=== PATIENT | male | born 1970 | race Two or more races ===

== ENCOUNTER 2017-06-03 01:52 | Emergency (ER) | payer BC ==
[~2017-06-03] VITALS: Ht 177.8 cm; Wt 66.2 kg
[2017-06-03] MEDS ORDERED: HUMIRA20 MG/0.4 SUBQ (02:08)
[2017-06-03 02:12] VITALS: BP 112/79
[2017-06-03] MEDS ORDERED: DIPHENHYDRAMINE25 M1 ORAL (02:29)
[2017-06-03] MEDS ORDERED: PREDNISONE20 MG ORAL (02:29)
[2017-06-03 02:44] VITALS: BP 126/74
--- NOTE | 2017-06-03 07:07 | Emergency Room Report ---
History of Present Illness General Chief Complaint: Allergic Reaction Source: Patient Present Illness HPI 46-year-old M presents ED complaining of allergic reaction. States that yesterday he had MRI with IV contrast as outpatient and states that immediately after IV contrast injection he felt tightness in his chest. States symptoms lasted for several minutes then subsided. Patient is here to get evaluated. Patient states he never received IV contrast before. Denies any chest pain or shortness of breath at this time. Denies any rash. No other aggravating relieving factors. Denies any other associated symptoms Allergies: Coded Allergies: CODEINE (Verified Allergy, Unknown, 06/03/17) Patient History Past Medical History: none Past Surgical History: none Pertinent Family History: none Immunizations: UTD Reviewed Nursing Documentation: PMH: Agreed, PSxH: Agreed Nursing Documentation-PMH Past Medical History: No History, Except For Review of Systems All Other Systems: negative except mentioned in HPI Physical Exam Vital Signs Date Time Temp Pulse Resp B/P (MAP) Pulse Ox O2 Delivery O2 Flow Rate FiO2 06/03/17 01:59 97.3 68 14 112/79 97 Room Air Sp02 EP Interpretation: reviewed, normal General Appearance: no apparent distress, alert, GCS 15, non-toxic Head: normocephalic, atraumatic Eyes: bilateral eye normal inspection, bilateral eye PERRL ENT: hearing grossly normal, normal pharynx, no angioedema, normal voice Neck: full range of motion, supple/symm/no masses Respiratory: chest non-tender, lungs clear, normal breath sounds, speaking full sentences Cardiovascular #1: regular rate, rhythm, no edema Cardiovascular #2: 2+ carotid (R), 2+ carotid (L), 2+ radial (R), 2+ radial (L) , 2+ dorsalis pedis (R), 2+ dorsalis pedis (L) Gastrointestinal: normal bowel sounds, non tender, soft, non-distended, no guarding, no rebound Rectal: deferred Genitourinary: normal inspection, no CVA tenderness Musculoskeletal: back normal, gait/station normal, normal range of motion, non- tender Neurologic: alert, oriented x3, responsive, motor strength/tone normal, sensory intact, speech normal Psychiatric: judgement/insight normal, memory normal, mood/affect normal, no suicidal/homicidal ideation Reflexes: 3+ bicep (R), 3+ bicep (L), 3+ tricep (R), 3+ tricep (L), 3+ knee (R) , 3+ knee (L) Skin: normal color, no rash, warm/dry, well hydrated Lymphatic: no adenopathy Medical Decision Making Diagnostic Impression: Primary Impression: Allergic reaction Qualified Codes: T78.40XA - Allergy, unspecified, initial encounter ER Course Hospital Course 46-year-old male presents ED complaining of initial shortness of breath after receiving IV contrast yesterday. No symptoms at this time Differential diagnoses include: allergic reaction, angioedema Clinical course Patient placed on stretcher. quality assurance monitor. After initial history physical exam reveals a male in no acute distress. Lungs clear. No stridor or throat tightness. No tongue swelling. No signs of urticarial rash Discussed with patient. Even though symptoms have since subsided the contrast administration we will treat as allergic reaction. I will provide him Benadryl and prednisone prescription i. I feel this is a highly complex case requiring extensive working including EKG/Rhythm strip, Xray/CT/US, Blood/urine lab work, repeat exams while in ED, and administration of strong opiates/narcotics for pain control, admission to hospital or close patient follow up. Diagnosis - allergic reaction Stable and discharged to home with prescriptions for prednisone, Benadryl. Followup with PMD. Return to ED if symptoms recur or worsen Last Vital Signs Date Time Temp Pulse Resp B/P (MAP) Pulse Ox O2 Delivery O2 Flow Rate FiO2 06/03/17 02:44 83 18 126/74 99 Room Air 06/03/17 02:12 97.3 Status: improved Disposition: HOME, SELF-CARE Condition: Stable Scripts Prednisone* (PREDNISONE*) 20 Mg Tablet 40 MG ORAL DAILY for 5 Days, #10 TAB Prov: LYNN COREAS M.D. 06/03/17 Diphenhydramine Hcl* (DIPHENHYDRAMINE HCL*) 25 Mg Capsule 25 MG ORAL Q6H Y for Itching for 5 Days, #30 CAP 0 Refills Prov: LYNN COREAS M.D. 06/03/17 Referrals: NON PHYSICIAN (PCP) Patient Instructions: Allergies LYNN COREAS M.D. Jun 03, 2017 07:07
== END 2017-06-03 02:45 | disposition home or self-care (01) ==
LOC: EMR 02:27
DX: T78.40XA Allergy, unspecified, initial encounter (principal); X58.XXXA Exposure to other specified factors, initial encounter; R06.02 Shortness of breath; Z88.6 Allergy status to analgesic agent
CPT/HCPCS: 99284